=== PATIENT | male | born 1965 | race African-American/Black ===

== ENCOUNTER 2022-02-16 12:46 | Emergency (ER) | payer MEDICAID, OTHER ==
[~2022-02-16] VITALS: Ht 170.2 cm; Wt 78.0 kg
[~2022-02-16 12:46] MED LIST: FAMO-135 PO; L10 PO
[2022-02-16] MEDS ORDERED: MORPHINE SULFATE 4 MG/ML CPJ (NOT FOR IM USE) IV STA (13:02)
[2022-02-16] MEDS ORDERED: MORPHINE SULFATE 4 MG/ML CPJ (NOT FOR IM USE) IV NR (13:05)
[2022-02-16 15:39] LABS: BASOPHILS % 0.3 % (0.0-2.0); HEMATOCRIT. 46.8 % (42.0-52.0); HEMOGLOBIN. 15.1 g/dL (14.0-18.0); LYMPHOCYTES % 9.6 % (20.0-50.0); MEAN CORPUSCULAR HEMOGLOBIN 29.5 pg (28.0-32.0); MEAN CORPUSCULAR VOLUME 91.7 fL (80.0-94.0); MEAN PLATELET VOLUME 6.8 fl (7.4-10.4); MONOCYTES % 9.5 % (2.0-8.0); NEUTROPHILS % 79.6 % (40.0-76.0); PLATELET 603 x1000/uL (130-400); RED BLOOD CELL COUNT 5.11 mill/uL (4.7-6.1)
[2022-02-16 15:48] LABS: CHLORIDE 103 mEq/L (98-107)
[2022-02-16 16:02] LABS: PROTHROMBIN TIME 11.1 sec (9.6-11.0)
[2022-02-16] MEDS ORDERED: IOHEXOL-300 100 ML BOTTLE ONE (20:11)
[2022-02-16] MEDS ORDERED: DIATR MEGLU/DIATRIZOATE SOLN 120ML ONE (20:12)
[2022-02-17] MEDS ORDERED: IOHEXOL-300 100 ML BOTTLE ONE (02:00)
[2022-02-17] MEDS ORDERED: PROT20 MT (02:56)
[2022-02-17 03:20] VITALS: BP 109/65
== END 2022-02-17 04:00 | disposition home or self-care (01) ==
LOC: ER 13:13
DX: R10.84 Generalized abdominal pain (principal); D72.829 Elevated white blood cell count, unspecified
CPT/HCPCS: 36415; 71045; 74176; 74177; 80053; 83690; 85025; 85610; 96374; 99285; J2270; Q9963; Q9967; Z7610